=== PATIENT | male | born 1950 | race African-American/Black ===

== ENCOUNTER 2021-03-31 13:32 | Inpatient (IN) | payer MEDICAID ==
[~2021-03-31] VITALS: Ht 180.3 cm; Wt 99.1 kg
[~2021-03-31 13:32] MED LIST: ALBU18HF2 IH; ALBU6.7H11 INH; AMLO10TA80 PO; MOME13HF INH; MULT-1146 PO
[2021-03-31] MEDS ORDERED: IPRATROPIUM BROMIDE (0.02%) 0.5MG/2.5ML NEB HHN STA (14:25)
[2021-03-31] MEDS ORDERED: ALBUTEROL (0.083%) 2.5MG/3ML NEB HHN STA (14:25)
[2021-03-31] MEDS ORDERED: METHYLPREDNISOLONE SOD SUCC 125 MG/2 ML VIAL IV STA (14:25)
[2021-03-31] MEDS ORDERED: MAGNESIUM 2 G PREMIX 50 ML IV ONE (14:30)
[2021-03-31 15:01] LABS: CHLORIDE 108 mEq/L (98-107)
[2021-03-31 15:02] LABS: BASOPHILS % 0.3 % (0.0-2.0); EOSINOPHILS % 2.4 % (0.0-5.0); HEMATOCRIT. 37.4 % (42.0-52.0); HEMOGLOBIN. 13.2 g/dL (14.0-18.0); LYMPHOCYTES % 27.8 % (20.0-50.0); MEAN CORPUSCULAR HEMOGLOBIN 33.9 pg (28.0-32.0); MEAN CORPUSCULAR VOLUME 95.9 fL (80.0-94.0); MEAN PLATELET VOLUME 9.6 fl (7.4-10.4); MONOCYTES % 9.8 % (2.0-8.0); NEUTROPHILS % 59.7 % (40.0-76.0); PLATELET 166 x1000/uL (130-400); RED CELL DISTRIBUTION WIDTH 12.2 % (11.6-14.6)
[2021-03-31 16:38] LABS: BG BASE EXCESS 1.3 mmol/L (-2.0-2.0); BG CARBOXYHEMOGLOBIN 0.1 % (0.5-1.5); BG DEOXYHEMOGLOBIN 5.2 % (0.0-5.0); BG FRACTION INSPIRED OXYGEN 21; BG HCO3 ACT 25.9 mmol/L (22.0-26.0); BG METHEMOGLOBIN 0.2 % (0.0-1.5); BG OXYGEN SATURATION 94.8 % (92.0-98.5); BG OXYHEMOGLOBIN 94.5 % (94.0-97.0); BG PCO2 40.8 mmHg (35.0-45.0); BG PO2 72.9 mmHg (75.0-100.0); BG SAMPLE SITE RIGHT RADIAL; BG TOTAL HEMOGLOBIN 14.4 g/dL (12.0-18.0); BG VENT MODE ROOM AIR
[2021-03-31] MEDS ORDERED: ONDANSETRON HCL 4MG/2ML INJ IV PRN (19:00)
[2021-03-31] MEDS ORDERED: HYDROCODONE/ACETAMINOPHEN 5/325MG TABLET PO PRN (19:00)
[2021-03-31] MEDS ORDERED: ACETAMINOPHEN 325MG TABLET PO PRN ×2 (19:00)
[2021-03-31] MEDS ORDERED: LORAZEPAM 0.5MG TABLET PO PRN (19:00)
[2021-03-31] MEDS ORDERED: IPRATROPIUM/ALBUTEROL 0.5-3(2.5)MG/3ML NEB HHN PRN (19:00)
[2021-03-31] MEDS ORDERED: CLONIDINE 0.1MG TABLET PO PRN (19:00)
[2021-03-31] MEDS ORDERED: DOCUSATE SODIUM 100MG CAPSULE PO PRN (19:00)
[2021-03-31 21:30] VITALS: BP 129/87
[2021-03-31] MEDS: METHYLPREDNISOLONE SOD SUCC 40 MG/ML VIAL IV SCH (22:15)
[2021-03-31 22:21] VITALS: BP 129/87
[2021-03-31] MEDS ORDERED: PANT40TA51 PO (23:06)
[2021-03-31] MEDS ORDERED: HYDR-4346 PO (23:06)
[2021-03-31] MEDS ORDERED: ATOR10TA69 PO (23:06)
[2021-03-31] MEDS ORDERED: ASPI-1497 PO (23:06)
[2021-03-31] MEDS ORDERED: TAMS-11 PO (23:06)
[2021-03-31] MEDS ORDERED: *PATIENT'S OWN MEDICATION STORAGE XX SCH (23:15)
[2021-04-01] VITALS: BP 140/69
[2021-04-01 04:00] VITALS: BP 143/79
[2021-04-01] MEDS: METHYLPREDNISOLONE SOD SUCC 40 MG/ML VIAL IV SCH ×3 (06:07→21:40)
[2021-04-01 07:11] LABS: BASOPHILS % 0.3 % (0.0-2.0); HEMATOCRIT. 40.3 % (42.0-52.0); HEMOGLOBIN. 13.7 g/dL (14.0-18.0); LYMPHOCYTES % 11.7 % (20.0-50.0); MEAN CORPUSCULAR HEMOGLOBIN 32.9 pg (28.0-32.0); MEAN CORPUSCULAR VOLUME 96.7 fL (80.0-94.0); MEAN PLATELET VOLUME 9.6 fl (7.4-10.4); MONOCYTES % 2.3 % (2.0-8.0); NEUTROPHILS % 85.7 % (40.0-76.0); PLATELET 157 x1000/uL (130-400); RED BLOOD CELL COUNT 4.17 mill/uL (4.7-6.1); RED CELL DISTRIBUTION WIDTH 12.1 % (11.6-14.6)
[2021-04-01 07:12] LABS: CHLORIDE 106 mEq/L (98-107)
[2021-04-01 08:00] VITALS: BP 119/77
[2021-04-01 12:19] VITALS: BP 130/68
[2021-04-01] MEDS: TAMSULOSIN HCL 0.4MG SR CAPSULE PO SCH (12:25)
[2021-04-01] MEDS: PANTOPRAZOLE 40MG DR TABLET PO SCH (12:25)
[2021-04-01] MEDS: ASPIRIN 81MG EC TABLET PO SCH (12:25)
[2021-04-01] MEDS: ATORVASTATIN CALCIUM 10MG TABLET PO SCH (12:25)
[2021-04-01] MEDS: AMLODIPINE 10MG TABLET PO SCH (12:25)
[2021-04-01 16:00] VITALS: BP 144/78
[2021-04-01 20:00] VITALS: BP 140/75
[2021-04-01] MEDS: IPRATROPIUM/ALBUTEROL 0.5-3(2.5)MG/3ML NEB HHN SCH (20:12)
[2021-04-02] VITALS: BP 119/69
[2021-04-02] MEDS: IPRATROPIUM/ALBUTEROL 0.5-3(2.5)MG/3ML NEB HHN SCH ×4 (01:30→21:14)
[2021-04-02 04:00] VITALS: BP 103/69
[2021-04-02] MEDS: METHYLPREDNISOLONE SOD SUCC 40 MG/ML VIAL IV SCH ×2 (05:29→14:09)
[2021-04-02 06:45] LABS: BASOPHILS % 0.1 % (0.0-2.0); HEMATOCRIT. 39.4 % (42.0-52.0); HEMOGLOBIN. 13.4 g/dL (14.0-18.0); LYMPHOCYTES % 7.9 % (20.0-50.0); MEAN CORPUSCULAR HEMOGLOBIN 33.1 pg (28.0-32.0); MEAN CORPUSCULAR VOLUME 97.2 fL (80.0-94.0); MEAN PLATELET VOLUME 9.9 fl (7.4-10.4); MONOCYTES % 4.3 % (2.0-8.0); NEUTROPHILS % 87.7 % (40.0-76.0); PLATELET 166 x1000/uL (130-400); RED BLOOD CELL COUNT 4.05 mill/uL (4.7-6.1); RED CELL DISTRIBUTION WIDTH 12.3 % (11.6-14.6)
[2021-04-02 07:15] LABS: CHLORIDE 108 mEq/L (98-107)
[2021-04-02 08:00] VITALS: BP 138/69
[2021-04-02] MEDS: AMLODIPINE 10MG TABLET PO SCH (09:59)
[2021-04-02] MEDS: ASPIRIN 81MG EC TABLET PO SCH (09:59)
[2021-04-02] MEDS: TAMSULOSIN HCL 0.4MG SR CAPSULE PO SCH (09:59)
[2021-04-02] MEDS: ATORVASTATIN CALCIUM 10MG TABLET PO SCH (09:59)
[2021-04-02] MEDS: PANTOPRAZOLE 40MG DR TABLET PO SCH (09:59)
[2021-04-02] MEDS ORDERED: P20 MT (10:35)
[2021-04-02] MEDS ORDERED: IPRA3AMP9 HHN ×2 (10:35)
[2021-04-02] MEDS ORDERED: ALBU6.7H11 INH (10:35)
[2021-04-02] MEDS ORDERED: MOME13HF INH (10:35)
[2021-04-02] MEDS ORDERED: ATOR20TA65 MT (10:35)
[2021-04-02 12:26] VITALS: BP 130/74
[2021-04-02 16:00] VITALS: BP 134/75
[2021-04-02 20:00] VITALS: BP 130/72
[2021-04-03] VITALS: BP 128/71
[2021-04-03 04:00] VITALS: BP 117/75
[2021-04-03] MEDS ORDERED: FAMOTIDINE 20MG TABLET PO SCH (06:45)
[2021-04-03] MEDS: IPRATROPIUM/ALBUTEROL 0.5-3(2.5)MG/3ML NEB HHN SCH ×2 (06:45→13:38)
[2021-04-03 08:00] VITALS: BP 147/72
[2021-04-03] MEDS: AMLODIPINE 10MG TABLET PO SCH (08:50)
[2021-04-03] MEDS: ASPIRIN 81MG EC TABLET PO SCH (08:50)
[2021-04-03] MEDS: ATORVASTATIN CALCIUM 10MG TABLET PO SCH (08:52)
[2021-04-03] MEDS: TAMSULOSIN HCL 0.4MG SR CAPSULE PO SCH (08:52)
[2021-04-03 12:00] VITALS: BP 141/74
[2021-04-03 15:01] VITALS: BP 141/74
[2021-04-15] MEDS ORDERED: ALBU6.7H11 INH (12:37)
[2021-04-15] MEDS ORDERED: MOME13HF INH (12:37)
== END 2021-04-03 14:50 | disposition home or self-care (01) | DRG 140 ==
LOC: ER 13:32 → 5WST 16:54 → ENRESERV 19:55
PROVIDERS: ADMIT Internal Medicine; ATTEND Internal Medicine
DX: J44.1 Chronic obstructive pulmonary disease with (acute) exacerbation (principal); J96.01 Acute respiratory failure with hypoxia; R65.11 Systemic inflammatory response syndrome (SIRS) of non-infectious origin with acute organ dysfunction; I50.32 Chronic diastolic (congestive) heart failure; I11.0 Hypertensive heart disease with heart failure; D53.9 Nutritional anemia, unspecified; J45.909 Unspecified asthma, uncomplicated; M19.90 Unspecified osteoarthritis, unspecified site; Z79.51 Long term (current) use of inhaled steroids; Z79.899 Other long term (current) drug therapy
CPT/HCPCS: 36415; 36600; 71045; 80048; 80053; 82375; 82805; 83605; 83880; 84484; 85025; 85379; 93005; 93306; 94640; 94644; 99291; J2920; J2930; J3475

== ENCOUNTER 2021-06-14 17:11 | Inpatient (IN) | payer MEDICAID, OTHER ==
[~2021-06-14] VITALS: Ht 180.3 cm; Wt 105.2 kg
[~2021-06-14 17:11] MED LIST changes: -ALBU18HF2 IH; +ASPI-1497 PO; +ATOR20TA65 MT; +HYDR-4346 PO; +PANT40TA51 PO; +TAMS-11 PO
[2021-06-14] MEDS ORDERED: ASPIRIN 81MG TABLET PO ONE (17:45)
[2021-06-14] MEDS: NITROGLYCERIN 0.4MG TABLET SL SL PRN ×2 (17:54→21:30)
[2021-06-14 18:01] LABS: BASOPHILS % 0.2 % (0.0-2.0); EOSINOPHILS % 0.1 % (0.0-5.0); HEMATOCRIT. 38.8 % (42.0-52.0); HEMOGLOBIN. 13.2 g/dL (14.0-18.0); LYMPHOCYTES % 23.5 % (20.0-50.0); MEAN CORPUSCULAR HEMOGLOBIN 32.7 pg (28.0-32.0); MEAN CORPUSCULAR VOLUME 95.8 fL (80.0-94.0); MEAN PLATELET VOLUME 9.3 fl (7.4-10.4); MONOCYTES % 10.1 % (2.0-8.0); NEUTROPHILS % 66.1 % (40.0-76.0); PLATELET 179 x1000/uL (130-400); RED BLOOD CELL COUNT 4.05 mill/uL (4.7-6.1); RED CELL DISTRIBUTION WIDTH 12.5 % (11.6-14.6)
[2021-06-14 18:09] LABS: CHLORIDE 107 mEq/L (98-107)
[2021-06-14 18:13] LABS: ETHANOL BLOOD < 10 mg/dL
[2021-06-14 18:16] LABS: CANNABINOID URINE SCREEN NEGATIVE (NEGATIVE); METHADONE URINE SCREEN NEGATIVE (NEGATIVE)
[2021-06-14 18:17] LABS: *AMPHETAMINES SCREEN URINE NEGATIVE (NEGATIVE); *BARBITURATES SCREEN URINE NEGATIVE (NEGATIVE); *BENZODIAZEPINES SCREEN URINE NEGATIVE (NEGATIVE); *COCAINE SCREEN URINE NEGATIVE (NEGATIVE); OPIATES URINE SCREEN NEGATIVE (NEGATIVE); PHENCYCLIDINE URINE SCREEN NEGATIVE (NEGATIVE)
[2021-06-14 18:18] LABS: D-DIMER 0.92 mg/L FEU (<0.50); PARTIAL THROMBOPLASTIN TIME 26.5 sec (23.4-31.0); PROTHROMBIN TIME 10.6 sec (9.6-11.0)
[2021-06-14] MEDS ORDERED: POTASSIUM CHLORIDE 20MEQ TABLET SR PO ONE (19:00)
[2021-06-14] MEDS ORDERED: IOHEXOL-350 100 ML BOTTLE ONE (23:35)
[2021-06-15 01:30] VITALS: BP 120/74
[2021-06-15] MEDS ORDERED: NALOXONE HCL 0.4MG/ML VIAL IV PRN (02:15)
[2021-06-15] MEDS: MORPHINE SULFATE 2 MG/ML CPJ (NOT FOR IM USE) IV PRN ×2 (03:37→15:33)
[2021-06-15 04:00] VITALS: BP 103/63
[2021-06-15 08:00] VITALS: BP_SYST 129; BP_SYST 149; BP_DIAS 69; BP_DIAS 86
[2021-06-15 12:00] VITALS: BP 129/69
[2021-06-15 16:00] VITALS: BP 125/76
[2021-06-15] MEDS ORDERED: ONDANSETRON HCL 4MG/2ML INJ IV PRN ×2 (16:45→20:45)
[2021-06-15] MEDS ORDERED: HYDROCODONE/ACETAMINOPHEN 5/325MG TABLET PO PRN ×2 (16:45→20:45)
[2021-06-15 20:00] VITALS: BP 109/72
[2021-06-15] MEDS ORDERED: POTASSIUM CHLORIDE 20MEQ TABLET SR PO NR (20:30)
[2021-06-15] MEDS ORDERED: CLONIDINE 0.1MG TABLET PO PRN (20:45)
[2021-06-15] MEDS ORDERED: DIPHENHYDRAMINE 50MG/ML VIAL IV PRN (20:45)
[2021-06-15] MEDS ORDERED: GUAIFENESIN 200MG/10ML SUGAR FREE UDC PO PRN (20:45)
[2021-06-15] MEDS ORDERED: MAGNESIUM/ALUMINUM HYDROXIDE/SIMETHICONE 30ML UDC PO PRN (20:45)
[2021-06-15] MEDS ORDERED: NA PHOS,M-B/NA PHOS,DI-BA ENEMA 118ML PR PRN (20:45)
[2021-06-15] MEDS ORDERED: ACETAMINOPHEN 325MG TABLET PO PRN ×2 (20:45)
[2021-06-15] MEDS ORDERED: ACETAMINOPHEN 650MG SUPP PR PRN ×2 (20:45)
[2021-06-15] MEDS ORDERED: DOCUSATE SODIUM 100MG CAPSULE PO PRN (20:45)
[2021-06-15] MEDS ORDERED: ACETAMINOPHEN 650MG/20.3ML UDC GT PRN ×2 (20:45)
[2021-06-15] MEDS: AMLODIPINE 10MG TABLET PO SCH (20:52)
[2021-06-15] MEDS ORDERED: ALBUTEROL (0.083%) 2.5MG/3ML NEB HHN PRN (20:55)
[2021-06-15] MEDS ORDERED: ALBUTEROL 6.7GM HFA INHALER INH SCH (21:00)
[2021-06-15] MEDS: TAMSULOSIN HCL 0.4MG SR CAPSULE PO SCH (21:20)
[2021-06-15] MEDS: ATORVASTATIN CALCIUM 20MG TABLET PO SCH (21:21)
[2021-06-15] MEDS: ENOXAPARIN 30MG/0.3ML SYR SUBCUT SCH (21:21)
[2021-06-15] MEDS: PANTOPRAZOLE 40MG DR TABLET PO SCH (21:21)
[2021-06-15] MEDS: ASPIRIN 81MG EC TABLET PO SCH (21:24)
[2021-06-15 21:41] LABS: BASOPHILS % 0.8 % (0.0-2.0); EOSINOPHILS % 2.9 % (0.0-5.0); HEMATOCRIT. 39.7 % (42.0-52.0); HEMOGLOBIN. 13.7 g/dL (14.0-18.0); LYMPHOCYTES % 31.7 % (20.0-50.0); MEAN CORPUSCULAR HEMOGLOBIN 32.7 pg (28.0-32.0); MEAN CORPUSCULAR VOLUME 94.3 fL (80.0-94.0); MEAN PLATELET VOLUME 8.9 fl (7.4-10.4); MONOCYTES % 10.5 % (2.0-8.0); NEUTROPHILS % 54.1 % (40.0-76.0); PLATELET 162 x1000/uL (130-400); RED CELL DISTRIBUTION WIDTH 12.6 % (11.6-14.6)
[2021-06-15 21:48] LABS: CHLORIDE 106 mEq/L (98-107)
[2021-06-15 21:55] LABS: LDL CHOLESTEROL 96 mg/dL (5-100)
[2021-06-15 21:56] LABS: HDL CHOLESTEROL 66 mg/dL (40-59)
[2021-06-16 04:00] VITALS: BP 107/66
[2021-06-16 06:21] LABS: BASOPHILS % 0.3 % (0.0-2.0); EOSINOPHILS % 3.7 % (0.0-5.0); HEMATOCRIT. 38.7 % (42.0-52.0); HEMOGLOBIN. 13.4 g/dL (14.0-18.0); LYMPHOCYTES % 37.5 % (20.0-50.0); MEAN CORPUSCULAR HEMOGLOBIN 32.7 pg (28.0-32.0); MEAN CORPUSCULAR VOLUME 94.2 fL (80.0-94.0); MEAN PLATELET VOLUME 9.4 fl (7.4-10.4); MONOCYTES % 8.7 % (2.0-8.0); NEUTROPHILS % 49.8 % (40.0-76.0); PLATELET 155 x1000/uL (130-400); RED BLOOD CELL COUNT 4.11 mill/uL (4.7-6.1); RED CELL DISTRIBUTION WIDTH 12.6 % (11.6-14.6)
[2021-06-16 08:36] LABS: CHLORIDE 109 mEq/L (98-107)
[2021-06-16 08:46] LABS: LDL CHOLESTEROL 94 mg/dL (5-100)
[2021-06-16 08:48] LABS: HDL CHOLESTEROL 64 mg/dL (40-59)
[2021-06-16] MEDS: AMLODIPINE 10MG TABLET PO SCH (09:00)
[2021-06-16] MEDS: ATORVASTATIN CALCIUM 20MG TABLET PO SCH (10:11)
[2021-06-16] MEDS: PANTOPRAZOLE 40MG DR TABLET PO SCH (10:11)
[2021-06-16] MEDS: TAMSULOSIN HCL 0.4MG SR CAPSULE PO SCH (10:12)
[2021-06-16] MEDS: ENOXAPARIN 30MG/0.3ML SYR SUBCUT SCH ×2 (10:22→21:23)
[2021-06-16] MEDS: ASPIRIN 81MG EC TABLET PO SCH (10:22)
[2021-06-16 16:00] VITALS: BP 110/54
[2021-06-16] MEDS ORDERED: REGADENOSON 0.4 MG/5 ML IV NR (17:30)
[2021-06-16 20:00] VITALS: BP 121/85
[2021-06-16] MEDS: FAMOTIDINE 20MG TABLET PO SCH (21:23)
[2021-06-17] VITALS: BP 113/77
[2021-06-17 04:00] VITALS: BP 106/67
[2021-06-17 08:00] VITALS: BP 124/78
[2021-06-17] MEDS: ENOXAPARIN 30MG/0.3ML SYR SUBCUT SCH (08:19)
[2021-06-17] MEDS: FAMOTIDINE 20MG TABLET PO SCH (08:19)
[2021-06-17] MEDS: ATORVASTATIN CALCIUM 20MG TABLET PO SCH (08:20)
[2021-06-17] MEDS: TAMSULOSIN HCL 0.4MG SR CAPSULE PO SCH (08:20)
[2021-06-17] MEDS: ASPIRIN 81MG EC TABLET PO SCH (08:20)
[2021-06-17] MEDS ORDERED: REGADENOSON 0.4 MG/5 ML IV ONE (10:32)
[2021-06-17 12:40] VITALS: BP 120/86
[2021-06-17] MEDS: AMLODIPINE 10MG TABLET PO SCH (12:49)
[2021-06-17] MEDS ORDERED: ASPI-1497 PO (15:13)
[2021-06-17] MEDS ORDERED: ALBU6.7H11 INH (15:13)
[2021-06-17] MEDS ORDERED: AMLO10TA80 PO (15:13)
[2021-06-17 15:45] VITALS: BP 120/86
[2021-06-17 16:00] VITALS: BP 124/81
== END 2021-06-17 18:20 | disposition home or self-care (01) | DRG 243 ==
LOC: ER 17:11 → 8WST 19:48 → ENRESERV 22:31
PROVIDERS: ADMIT Family Medicine; ATTEND Family Medicine
DX: K21.9 Gastro-esophageal reflux disease without esophagitis (principal); I11.0 Hypertensive heart disease with heart failure; I50.32 Chronic diastolic (congestive) heart failure; E78.5 Hyperlipidemia, unspecified; J44.9 Chronic obstructive pulmonary disease, unspecified; M19.90 Unspecified osteoarthritis, unspecified site; Z87.440 Personal history of urinary (tract) infections; R00.0 Tachycardia, unspecified; Z20.822 Contact with and (suspected) exposure to COVID-19
CPT/HCPCS: 36415; 71045; 71275; 78452; 80053; 80061; 80305; 80320; 83036; 83880; 84484; 85025; 85379; 87426; 93005; 93017; 93306; 99285; A9500; J1650; J2270; J2785; Q9967; G0480

== ENCOUNTER 2021-06-19 14:57 | Emergency (ER) | payer MEDICAID ==
[~2021-06-19] VITALS: Ht 180.3 cm; Wt 109.0 kg
[~2021-06-19 14:57] MED LIST changes: -ALBU6.7H11 INH; +ALBU6.7H15 INH
[2021-06-19 18:01] LABS: BASOPHILS % 0.7 % (0.0-2.0); EOSINOPHILS % 1.1 % (0.0-5.0); HEMATOCRIT. 41.1 % (42.0-52.0); HEMOGLOBIN. 14.5 g/dL (14.0-18.0); LYMPHOCYTES % 21.5 % (20.0-50.0); MEAN CORPUSCULAR VOLUME 93.6 fL (80.0-94.0); MEAN PLATELET VOLUME 9.1 fl (7.4-10.4); MONOCYTES % 10.1 % (2.0-8.0); NEUTROPHILS % 66.6 % (40.0-76.0); PLATELET 150 x1000/uL (130-400); RED CELL DISTRIBUTION WIDTH 12.6 % (11.6-14.6)
[2021-06-19 18:08] LABS: CHLORIDE 109 mEq/L (98-107)
[2021-06-19 18:12] LABS: ETHANOL BLOOD < 10 mg/dL
[2021-06-19 18:54] LABS: CLARITY URINE CLEAR (CLEAR); COLOR URINE YELLOW (YELLOW); KETONES URINE NEGATIVE (NEGATIVE); LEUKOCYTE ESTERASE URINE NEGATIVE (NEGATIVE); NITRITE URINE NEGATIVE (NEGATIVE); OCCULT BLOOD URINE NEGATIVE (NEGATIVE); PROTEIN URINE NEGATIVE (NEGATIVE); SPECIFIC GRAVITY URINE 1.009 (1.005-1.030)
[2021-06-19 19:07] LABS: *AMPHETAMINES SCREEN URINE NEGATIVE (NEGATIVE); *BARBITURATES SCREEN URINE NEGATIVE (NEGATIVE); *BENZODIAZEPINES SCREEN URINE NEGATIVE (NEGATIVE); *COCAINE SCREEN URINE NEGATIVE (NEGATIVE); METHADONE URINE SCREEN NEGATIVE (NEGATIVE)
[2021-06-19 19:08] LABS: CANNABINOID URINE SCREEN NEGATIVE (NEGATIVE); OPIATES URINE SCREEN NEGATIVE (NEGATIVE); PHENCYCLIDINE URINE SCREEN NEGATIVE (NEGATIVE)
[2021-06-19 23:13] VITALS: BP 136/92
== END 2021-06-19 23:15 | disposition home or self-care (01) ==
LOC: ER 14:57
DX: R07.89 Other chest pain (principal); J44.9 Chronic obstructive pulmonary disease, unspecified; M19.90 Unspecified osteoarthritis, unspecified site; I11.0 Hypertensive heart disease with heart failure; I50.9 Heart failure, unspecified
CPT/HCPCS: 36415; 71045; 80053; 80305; 80320; 81003; 83880; 84484; 85025; 93005; 99285; G0480

== ENCOUNTER 2023-03-20 12:02 | Emergency (ER) | payer MEDICAID ==
[~2023-03-20] VITALS: Ht 180.3 cm; Wt 93.0 kg
[~2023-03-20 12:02] MED LIST changes: -MOME13HF INH; +MOME13HF11 INH
[2023-03-20 12:35] VITALS: BP 140/84
[2023-03-20] MEDS ORDERED: LIDOCAINE 5% PATCH TOP SCH (13:30)
[2023-03-20] MEDS ORDERED: KETOROLAC 60MG/2ML VIAL IM ONE (13:45)
[2023-03-20 13:53] LABS: BASOPHILS % 0.4 % (0.0-2.0); EOSINOPHILS % 0.5 % (0.0-5.0); HEMATOCRIT. 40.6 % (42.0-52.0); HEMOGLOBIN. 13.7 g/dL (14.0-18.0); LYMPHOCYTES % 21.1 % (20.0-50.0); MEAN CORPUSCULAR HEMOGLOBIN 32.6 pg (28.0-32.0); MEAN CORPUSCULAR VOLUME 96.6 fL (80.0-94.0); MEAN PLATELET VOLUME 9.3 fl (7.4-10.4); MONOCYTES % 8.7 % (2.0-8.0); NEUTROPHILS % 69.3 % (40.0-76.0); PLATELET 167 x1000/uL (130-400); RED CELL DISTRIBUTION WIDTH 12.5 % (11.6-14.6)
[2023-03-20 13:54] LABS: CHLORIDE 111 mEq/L (98-107)
[2023-03-20 15:26] LABS: CLARITY URINE CLEAR (CLEAR); COLOR URINE YELLOW (YELLOW); KETONES URINE NEGATIVE (NEGATIVE); LEUKOCYTE ESTERASE URINE NEGATIVE (NEGATIVE); NITRITE URINE NEGATIVE (NEGATIVE); OCCULT BLOOD URINE NEGATIVE (NEGATIVE); PH URINE 7.5 (4.5-8.0); PROTEIN URINE TRACE (NEGATIVE); SPECIFIC GRAVITY URINE 1.012 (1.005-1.030)
[2023-03-20] MEDS ORDERED: METHOCARBAMOL 500MG TABLET PO ONE (15:45)
[2023-03-20] MEDS ORDERED: METH-653 MT (17:23)
[2023-03-20] MEDS ORDERED: LIDO700A30 TP (17:23)
== END 2023-03-20 17:42 | disposition home or self-care (01) ==
LOC: ER 13:56
DX: M54.50 Low back pain, unspecified (principal); K40.90 Unilateral inguinal hernia, without obstruction or gangrene, not specified as recurrent; I11.0 Hypertensive heart disease with heart failure; I50.9 Heart failure, unspecified; J44.9 Chronic obstructive pulmonary disease, unspecified; Z87.440 Personal history of urinary (tract) infections; Z79.899 Other long term (current) drug therapy
CPT/HCPCS: 36415; 73502; 74176; 80053; 81003; 85025; 96372; 99285; J1885